=== PATIENT | male | born 1965 | race Caucasian/White ===

== ENCOUNTER 2017-05-08 22:42 | Emergency (ER) | payer MEDICAID ==
--- NOTE | 2017-05-08 23:10 | EDPHY ---
H & P Stated Complaint: fall and hit back on rock HPI/ROS: HPI CHIEF COMPLAINT: Fall, back trauma HISTORY OF PRESENT ILLNESS: This patient is a very pleasant 51-year-old male, otherwise healthy does have significant past medical history for hyperlipidemia , GERD, depression, presents emergency room after he states he was walking up for stairs fell backwards landing on a jacket rock on his left back CVA region. This happened 2 hours ago. He has ongoing pain. He denies abdominal pain. Denies chest pain or shortness of breath. Has localized left back pain. No midline pain. Pain over the left CVA region. Not on any anticoagulation. Past Medical History: Hyperlipidemia, GERD, depression Past Surgical History: No recent surgical history Social History: Denies daily use drugs alcohol tobacco products. Family History: Noncontributory ROS REVIEW OF SYSTEMS: A comprehensive 10 point review of systems is otherwise negative aside from elements mentioned in the history of present illness. Exam Constitutional appears well nontoxic, triage nursing summary reviewed, vital signs reviewed, awake/alert. Eyes normal conjunctivae and sclera, EOMI, PERRLA. HENT normal inspection, atraumatic, moist mucus membranes, no epistaxis, neck supple/ no meningismus, no raccoon eyes. Respiratory clear to auscultation bilaterally, normal breath sounds, no respiratory distress, no wheezing. Cardiovascular rate normal, regular rhythm, no murmur, no edema, distal pulses normal. Gastrointestinal soft, non-tender, no rebound, no guarding, normal bowel sounds, no distension, no pulsatile mass. Genitourinary left flank: Abrasion present. Soft tissue swelling. No significant ecchymosis. Mild tender palpation left CVA. Musculoskeletal no midline vertebral tenderness, full range of motion, no calf swelling, no tenderness of extremities, no meningismus, good pulses, neurovascularly intact. Skin pink, warm, & dry, no rash, skin atraumatic. Neurologic awake, alert and oriented x 3, AAOx3, moves all 4 extremities equally, motor intact, sensory intact, CN II-XII intact, normal cerebellar, normal vision, normal speech. Psychiatric normal mood/affect. Heme/Lymph/Immune no lymphadenopathy. Differential Diagnosis: Includes but is not limited to in a particular order: Soft tissue injury, multiple abrasions, kidney laceration, blunt force trauma intra-abdominal bleed Medical Decision Making: Plan for this patient IV establishment, check blood work, CT scan abdomen pelvis with IV contrast for trauma. Check urinalysis for blood. Re-evaluation: 0109AM: CT report called to me by Dr. Cuba Thomas. A CT abdomen pelvis with IV contrast shows no intracutaneous abdominal trauma specifically no kidney laceration. However he does have left-sided posterior rib fracture 11th and 12th rib additionally L1, L2, L3 transverse process fractures. Also small amount of blood in the left psoas muscle. Otherwise unremarkable traumatic CT. No pneumothorax. 0116AM: Spoke with Dr. Saul Ledezma. No acute intervention needed for L1-L2 L3 transverse process fracture. Patient has rib fractures no pneumothorax. Placed incentive spirometer, ibuprofen, [place] for pain control. He understands if he has worsening back pain fever abdominal pain or vomiting he needs return to the emergency room. Source: Patient - Personal History Current Tetanus/Diphtheria Vaccine: Yes Current Tetanus Diphtheria and Acellular Pertussis (TDAP): Yes - Medical/Surgical History Hx Asthma: No Hx Chronic Respiratory Disease: No Hx Diabetes: No Hx Cardiac Disease: No Hx Renal Disease: No Hx Cirrhosis: No Hx Alcoholism: No Hx HIV/AIDS: No Hx Splenectomy or Spleen Trauma: No Other PMH: "stomach problems" - Social History Smoking Status: Current some day smoker Constitutional: Initial Vital Signs Temperature (C) 36.6 C 05/08/17 22:51 Heart Rate 117 H 05/08/17 22:51 Respiratory Rate 18 05/08/17 22:51 Blood Pressure 115/86 H 05/08/17 22:51 O2 Sat (%) 94 05/08/17 22:51 O2 Delivery Mode Room Air Allergies/Adverse Reactions: No Known Allergies Allergy (Verified 05/03/16 14:23) Home Medications: Medication Instructions Recorded Pantoprazole Sodium [Protonix] 40 mg PO BID 11/21/11 Simvastatin [Zocor 10 mg (RX)] 10 mg PO DAILY18 11/21/11 Nortriptyline HCl [Pamelor 10 mg 10 mg PO HS 05/03/16 (*)] Viibryd 05/08/17 Hydrocodone/APAP 5/325 [[place] 1 - 2 tab PO Q4H PRN #20 tab 05/09/17 5/325] Medical Decision Making - Data Points Laboratory Results: Laboratory Results 05/08/17 23:31 05/08/17 23:31 05/08/17 05/08/17 23:31 23:31 WBC 14.23 10^3/uL H 10^3/uL (3.80-9.50) RBC 5.73 10^6/uL 10^6/uL (4.40-6.38) Hgb 17.8 g/dL H g/dL (13.7-17.5) Hct 54.1 % H % (40.0-51.0) MCV 94.4 fL fL (81.5-99.8) MCH 31.1 pg pg (27.9-34.1) MCHC 32.9 g/dL g/dL (32.4-36.7) RDW 13.7 % % (11.5-15.2) Plt Count 241 10^3/uL 10^3/uL (150-400) MPV 10.2 fL fL (8.7-11.7) Neut % (Auto) 81.2 % H % (39.3-74.2) Lymph % (Auto) 10.4 % L % (15.0-45.0) Will % (Auto) 6.0 % % (4.5-13.0) Eos % (Auto) 1.5 % % (0.6-7.6) Baso % (Auto) 0.5 % % (0.3-1.7) Nucleat RBC Rel Count 0.0 % % (0.0-0.2) Absolute Neuts (auto) 11.56 10^3/uL H 10^3/uL (1.70-6.50) Absolute Lymphs (auto) 1.48 10^3/uL 10^3/uL (1.00-3.00) Absolute Monos (auto) 0.85 10^3/uL H 10^3/uL (0.30-0.80) Absolute Eos (auto) 0.21 10^3/uL 10^3/uL (0.03-0.40) Absolute Basos (auto) 0.07 10^3/uL 10^3/uL (0.02-0.10) Absolute Nucleated RBC 0.00 10^3/uL 10^3/uL (0-0.01) Immature Gran % 0.4 % % (0.0-1.1) Immature Gran # 0.06 10^3/uL 10^3/uL (0.00-0.10) Sodium 139 mEq/L mEq/L (134-144) Potassium 4.4 mEq/L mEq/L (3.5-5.2) Chloride 100 mEq/L mEq/L (97-110) Carbon Dioxide 26 mEq/l mEq/l (22-31) Anion Gap 13 mEq/L mEq/L (8-16) BUN 18 mg/dL mg/dL (7-23) Creatinine 1.4 mg/dL H mg/dL (0.7-1.3) Estimated GFR 53 Glucose 88 mg/dL mg/dL (70-100) Calcium 9.8 mg/dL mg/dL (8.5-10.4) Total Bilirubin 0.8 mg/dL mg/dL (0.1-1.4) Conjugated Bilirubin 0.2 mg/dL mg/dL (0.0-0.5) Unconjugated Bilirubin 0.6 mg/dL mg/dL (0.0-1.1) AST 41 IU/L IU/L (17-59) ALT 37 IU/L IU/L (21-72) Alkaline Phosphatase 98 IU/L IU/L (38-126) Total Protein 8.1 g/dL g/dL (6.3-8.2) Albumin 4.8 g/dL g/dL (3.5-5.0) Lipase 225 IU/L IU/L (23-300) Medications Given: Discontinued Medications Hydromorphone HCl (Dilaudid) 0.5 mg IVP EDNOW ONE Stop: 05/08/17 23:15 Last Admin: 05/08/17 23:37 Dose: 0.5 mg Hydromorphone HCl (Dilaudid) 0.5 mg IVP EDNOW ONE Stop: 05/09/17 01:11 Last Admin: 05/09/17 01:14 Dose: 0.5 mg Sodium Chloride (Ns) 1,000 mls @ 0 mls/hr IV EDNOW ONE; Wide Open PRN Reason: Protocol Stop: 05/08/17 23:15 Last Admin: 05/08/17 23:36 Dose: 1,000 mls Ketorolac Tromethamine (Toradol) 15 mg IVP EDNOW ONE Stop: 05/09/17 01:11 Last Admin: 05/09/17 01:15 Dose: 15 mg Ondansetron HCl (Zofran) 4 mg IVP EDNOW ONE Stop: 05/08/17 23:15 Last Admin: 05/08/17 23:36 Dose: 4 mg Departure - Departure Disposition: Home, Routine, Self-Care Clinical Impression: Spinous process fracture Back pain Qualifiers: Back pain location: low back pain Chronicity: acute Back pain laterality: left Sciatica presence: without sciatica Qualified Code(s): M54.5 - Low back pain Rib fractures Qualifiers: Encounter type: initial encounter Rib fracture type: multiple ribs Fracture type: closed Laterality: left Qualified Code(s): S22.42XA - Multiple fractures of ribs, left side, initial encounter for closed fracture Condition: Good Instructions: Low Back Strain (ED), Acute Low Back Pain (ED), Rib Fracture (ED) Additional Instructions: 1. Ice your back. 2. Ibuprofen and Tylenol for pain control. [place] for severe pain 3. Use your incentive spirometer as directed. 4. Please return emergency room if you have worsening symptoms includes severe back pain, vomiting, abdominal pain. Referrals: Ken Culver DO [Primary Care Provider] - As per Instructions Prescriptions: Hydrocodone/APAP 5/325 [[place] 5/325] 1 - 2 tab PO Q4H PRN #20 tab PRN Reason: Pain, Moderate
[2017-05-08] MEDS ORDERED: HYDROmorphONE/DILAUDID 1 MG/ML INJ IVP ONE (23:14)
[2017-05-08] MEDS ORDERED: ONDANSETRON 4 MG/2 ML VIAL IVP ONE (23:14)
[2017-05-08] MEDS ORDERED: NS 1,000 ML IV ONE (23:14)
[2017-05-08 23:41] LABS: % IMMATURE GRANULYOCYTES 0.4 % (0.0-1.1); ABSOLUTE IMMATURE GRANULOCYTES 0.06 10^3/uL (0.00-0.10); ADD DIFF? NO; ADD MORPH? NO; ADD SCAN? NO; ATYPICAL LYMPHOCYTE FLAG 0 (0-99); FRAGMENT RBC FLAG 0 (0-99); HEMATOCRIT 54.1 % (40.0-51.0); HEMOGLOBIN 17.8 g/dL (13.7-17.5); LEFT SHIFT FLG 0 (0-99); LIPEMIA HEMOLYSIS FLAG 80 (0-99); MEAN CELL HEMOGLOBIN 31.1 pg (27.9-34.1); MEAN CELL HEMOGLOBIN CONCENTR. 32.9 g/dL (32.4-36.7); MEAN CELL VOLUME 94.4 fL (81.5-99.8); MEAN PLATELET VOLUME 10.2 fL (8.7-11.7); PLATELET CLUMPS FLAG 10 (0-99); PLATELET COUNT 241 10^3/uL (150-400); RED BLOOD CELL COUNT 5.73 10^6/uL (4.40-6.38); RED CELL DISTRIBUTION WIDTH 13.7 % (11.5-15.2)
[2017-05-08 23:54] LABS: ALANINE AMINOTRANSFERASE 37 IU/L (21-72); ALBUMIN 4.8 g/dL (3.5-5.0); ALKALINE PHOSPHATASE 98 IU/L (38-126); ANION GAP 13 mEq/L (8-16); ASPARTATE AMINOTRANSFERASE 41 IU/L (17-59); BILIRUBIN,TOTAL 0.8 mg/dL (0.1-1.4); BILIRUBIN-CONJUGATED 0.2 mg/dL (0.0-0.5); BILIRUBIN-UNCONJUGATED 0.6 mg/dL (0.0-1.1); CALCIUM 9.8 mg/dL (8.5-10.4); CARBON DIOXIDE 26 mEq/l (22-31); CHLORIDE 100 mEq/L (97-110); CREATININE 1.4 mg/dL (0.7-1.3); GLOMERULAR FILTRATION RATE 53; GLUCOSE 88 mg/dL (70-100); POTASSIUM 4.4 mEq/L (3.5-5.2); SODIUM 139 mEq/L (134-144); TOTAL PROTEIN 8.1 g/dL (6.3-8.2)
[2017-05-09] MEDS ORDERED: IOPAMIDOL (ISOVUE-300) 100 ML BTL ONE (00:12)
[2017-05-09 00:44] VITALS: RESP 16
[2017-05-09] MEDS ORDERED: HYDROmorphONE/DILAUDID 1 MG/ML INJ IVP ONE (01:10)
[2017-05-09] MEDS ORDERED: KETOROLAC 15 MG/1 ML SDV IVP ONE (01:10)
[2017-05-09 02:01] LABS: COLOR YELLOW; LEUKOCYTE ESTERASE,URINE NEGATIVE (NEGATIVE); NITRITE,URINE NEGATIVE (NEGATIVE)
[2017-05-09 02:29] VITALS: BP 122/71; PULSE 78; TEMP 98.1; O2SAT 96
== END 2017-05-09 02:32 | disposition home or self-care (01) ==
DX: S39.92XA Unspecified injury of lower back, initial encounter (principal); S22.42XA Multiple fractures of ribs, left side, initial encounter for closed fracture; S32.019A Unspecified fracture of first lumbar vertebra, initial encounter for closed fracture; S32.029A Unspecified fracture of second lumbar vertebra, initial encounter for closed fracture; S32.039A Unspecified fracture of third lumbar vertebra, initial encounter for closed fracture; W01.118A Fall on same level from slipping, tripping and stumbling with subsequent striking against other sharp object, initial encounter; Y99.8 Other external cause status; Y93.89 Activity, other specified; E86.9 Volume depletion, unspecified; F17.200 Nicotine dependence, unspecified, uncomplicated
CPT/HCPCS: 96374; J1170; J1885; J2405; Q9967